=== PATIENT | female | born 1945 | race Caucasian/White ===

== ENCOUNTER → 2017-02-16 | Outpatient (CLI) | payer MEDICARE ==
[~2017-02-16] MED LIST: ASPI-611 PO; ATOR80TA17 PO; CALC-504 PO; CARV3.1232 PO; CHOL200026 PO; GABA-215 PO; INSU100C6 SQ; INSU100V12 SQ; MIRT15TA PO; OMEP20TA11 PO; TRAM-277 PO
--- NOTE | 2017-02-16 09:21 | DI ---
Indication: ITS.REASON: R41.3 OTHER AMNESIA PROCEDURE: MRI BRAIN W/O CONTRAST: Encounter: Initial Comparisons: None. Technique: Multiplanar, multisequence, MR imaging of the head without contrast was acquired. FINDINGS: Mild atrophy. Focal encephalomalacia is noted in the left frontal lobe with volume loss and subcortical T2/FLAIR hyperintensity. 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 The ventricles are of normal size, shape, and contour for the patient's age. Elsewhere there are small nonspecific punctate areas of T2-weighted and T2 FLAIR weighted signal abnormality in the deep frontoparietal white matter that most likely represent small vessel ischemic disease. This is of a degree that is considered to be normal for the patient's age. The brain stem, cerebellum, and cerebral hemispheres otherwise have a normal morphologic appearance as well as MR signal intensity on all pulse sequences. There are no areas of restricted diffusion on diffusion weighted imaging to suggest an acute infarct. There is no evidence of an intracranial mass lesion, intracranial hemorrhage, or hydrocephalus. The visualized portions of the orbits, calvarium, paranasal sinuses, and skull base demonstrate no significant abnormality. 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 No acute intracranial abnormality. .
== END ==
LOC: IMA 06:37
PROVIDERS: ATTEND Family Medicine
DX: R41.3 Other amnesia (principal); R90.89 Other abnormal findings on diagnostic imaging of central nervous system